=== PATIENT | female | born 1945 | race Caucasian/White ===

== ENCOUNTER 2020-12-30 22:41 | Emergency (ER) | payer MEDICARE, BC ==
--- NOTE | 2020-12-31 00:08 | EDM.PDOC ---
ED HPI GENERAL MEDICAL PROBLEM - General Chief Complaint: General Stated Complaint: MEDICAL [facility] Time Seen by Provider: 12/30/20 23:56 Source of Information: Reports: Patient, Family, RN Notes Reviewed History Limitations: Reports: No Limitations - History of Present Illness INITIAL COMMENTS - FREE TEXT/NARRATIVE: 75-year-old female presents emergency department today via EMS services following a fall at home, this was unwitnessed fall there was no loss of consciousness however she did injure herself they believe she fell in her home and hit a bookcase causing severe injury to her left side of her face lacerations and a severe black eye. She does have a history of dementia difficult to obtain review of systems from her. She denies any pain at this time - Related Data Allergies Allergy/AdvReac Type Severity Reaction Status Date / Time adhesive Allergy Rash Verified 12/30/20 23:12 propoxyphene Allergy Hives Verified 12/30/20 23:12 Sulfa (Sulfonamide Allergy Hives Verified 12/30/20 23:12 Antibiotics) amoxicillin [Amoxicillin] AdvReac Diarrhea Verified 12/30/20 23:12 Home Meds: Home Meds Carbidopa/Levodopa [Sinemet Cr 25-100 mg] 2 tab PO BEDTIME 12/07/12 [History] Simvastatin [Zocor] 40 mg PO DAILY 12/07/12 [History] Tolterodine Tartrate [Detrol LA] 4 mg PO DAILY 12/07/12 [History] predniSONE [Prednisone] 5 mg PO DAILY 12/07/12 [History] Biotin/Calcium Carbonate [Biotin 800 MCG] 5,000 mg PO DAILY 07/03/13 [History] Latanoprost [Xalatan] 1 drop OP DAILY 07/03/13 [History] Levothyroxine [Synthroid] 75 mcg PO ACBREAKFAST 07/16/15 [History] Multivit-Min/Iron/Folic/Lutein [Centrum Silver Women Tablet] 1 each PO DAILY 08/31/17 [History] timoloL maleate [Timoptic 0.5% Opth Soln] 1 drop EYEBOTH DAILY 08/31/17 [History] Cholecalciferol (Vitamin D3) [Vitamin D3] 2,000 units PO DAILY 12/31/20 [History] Cyclobenzaprine [Flexeril] 5 mg PO ASDIRECTED 12/31/20 [History] Folic Acid 1.6 mg PO DAILY 12/31/20 [History] Gabapentin [Neurontin] 100 mg PO BID 12/31/20 [History] Hydrocodone/Acetaminophen [Hydrocodon-Acetaminophn 10-325] 1 tab PO ASDIRECTED 12/31/20 [History] Ipratropium [Atrovent 0.06% Nasal [place]] 1 dose ASIF ASDIRECTED 12/31/20 [History] Iron,Carbonyl/Ascorbic Acid [Iron-Vitamin C 100-250 mg Tab] 1 tab PO DAILY 12/31/20 [History] Methotrexate 2.5 mg PO DAILY 12/31/20 [History] Warfarin [Coumadin] 1 tab PO ASDIRECTED 12/31/20 [History] carvediloL [Carvedilol] 3.125 mg PO DAILY 12/31/20 [History] lisinopriL [Lisinopril] 5 mg PO DAILY 12/31/20 [History] Past Medical History HEENT History: Reports: Allergic Rhinitis, Cataract, Glaucoma, Sinusitis Cardiovascular History: Reports: High Cholesterol Gastrointestinal History: Reports: Diverticulosis, GERD, Hiatal Hernia [employer] History: Reports: Musculoskeletal History: Reports: Arthritis, Back Pain, Chronic, Neck Pain, Chronic Psychiatric History: Reports: Dementia Endocrine/Metabolic History: Reports: Hypothyroidism - Infectious Disease History Infectious Disease History: Reports: Chicken Pox, Measles, Mumps - Past Surgical History HEENT Surgical History: Reports: Cataract Surgery GI Surgical History: Reports: Cholecystectomy, Colon, Colonoscopy, EGD, Hernia, Abdominal Female Surgical History: Reports: Section, Hysterectomy Neurological Surgical History: Reports: C-Spine Musculoskeletal Surgical History: Reports: Shoulder Replacement Other Musculoskeletal Surgeries/Procedures:: feet and surg. bilat. for RA Social & Family History - Tobacco Use Tobacco Use Status *Q: Never Tobacco User - Caffeine Use Caffeine Use: Reports: None - Alcohol Use Days Per Week of Alcohol Use: 7 Number of Drinks Per Day: 2 Total Drinks Per Week: 14 - Recreational Drug Use Recreational Drug Use: No ED ROS GENERAL - Review of Systems Review Of Systems: See Below Constitutional: Reports: No Symptoms Respiratory: Reports: No Symptoms Cardiovascular: Reports: No Symptoms GI/Abdominal: Reports: No Symptoms Musculoskeletal: Reports: No Symptoms Skin: Reports: Wound Neurological: Reports: No Symptoms ED EXAM, GENERAL - Physical Exam Exam: See Below Free Text/Narrative:: Primary survey airway is open patent and clear to auscultation bilaterally cardiovascular etc. rate and rhythm S1-S2 GCS 15 Secondary survey General: Elderly female, not in any distress, alert and oriented x2, GCS 15 HEENT: head is marked bruising appreciated over the left orbit she does have lacerations along the cheek and upper lip normocephalic, eyes pupils equal round reactive to light, sclera clear no conjunctivitis appreciated extraocular eye movements intact. ears tympanic membranes clear and mar landmarks and light reflex are present bilaterally canals are clear. Nose no septal deviation, nares are clear, no blood present. Mouth mucosa is moist and pink no erythema or exudate noted in soft palate, tongue is midline uvula is midline, dentition is intact. Neck: Supple no thyromegaly no tracheal deviation. NO posterior midline C-spine tenderness Positive for evidence of intoxication GCS > 14 No focal neurological deficit NO distracting injury Nodes: Cervical nodes subclavicular nodes nontender no palpable lymphadenopathy noted. Lungs: clear to auscultation bilaterally with symmetrical respirations, no adventitious noise appreciated. CV: Regular rate and rhythm S1 and S2 appreciated no murmurs rubs or gallops noted. Abdomen: Soft, nontender, no palpable masses or organomegaly appreciated, no distention no guarding bowel sounds are present, [scars ]. Neuro: Cranial nerves II test with pupillary light reflex 4 mm to 2 mm bilaterally, CN III test pupillary constriction, lid elevation and eye abduction bilaterally, CN IV downward movement of eyes bilaterally, CN V good jaw movement, CN lateral deviation of the eyes bilaterally to finger movement, CN VII symmetrical smile shows teeth without difficulty, CN VIII pass finger rub to ears bilaterally, CN IX adequate voice and tone, CN X adequate voice and tone no difficulty swallowing, CN XI can shrug shoulders without difficulty, CN XII can stick tongue out without difficulty, cranial nerves II to XII intact as tested, Skin: Marked bruising is appreciated around the left orbit, lacerations along the left cheek laceration inside the mouth superior lip. Skin tear noticed on the left wrist area Extremities: No lower extremity edema appreciated, no tenderness shoulders elbows wrists bilaterally pelvic rocks is negative no tenderness knees or ankles bilaterally Exam Limited By: No Limitations General Appearance: Alert, WD/WN, No Apparent Distress ED GENERAL MEDICAL PROCEDURES - Laceration/Wound Repair Face Lac/wound length in cm: 1 Appearance: Linear Distal NVT: Neuro & Vascular Intact, No Tendon Injury Anesthetic Type: Local Local Anesthesia - Lidocaine (Xylocaine): 1% with EPI Local Anesthetic Volume: 1cc Skin Prep: Saline Saline irrigation (cc's): 20 Exploration/Debridement/Repair: Wound Explored, In a Bloodless Field, Explored to Base Closed with: Sutures Suture Size: 5-0 # of Sutures: 1 Suture Type: Running Sterile Dressing Applied: Nurse Tetanus Status Addressed: Yes Complications: No - Additional/Other Procedure(s) Other (Free Text) Procedure(s): preoperative diagnosis multiple lacerations to the face two are 1 cm in length 1 is 2 cm in length one 1 cm in length inside of the mouth Postoperative diagnosis same Surgeon Jimenez OfficerMD Verbal consent was obtained prior to procedure risks and benefits were discussed patient is in agreement and wishes to proceed. Anesthesia 3 cc lidocaine with epinephrine 1% Estimated blood loss minimal Specimens none Summary procedure: Timeout was performed prior to initiation procedure identified correct site, correct patient and correct procedure. After adequate anesthesia the area was cleaned with tap water copious amounts approximately 60 cc, next 5-0 Ethilon was used to repair the multiple lacerations, the first 1 cm laceration was pared with a running suture, next the 2 cm laceration was repaired with 3 interrupted sutures, next a 1 cm laceration was repaired with 2 interrupted sutures, next the 1 cm laceration inside the mouth was repaired with 4-0 Vicryl 2 interrupted sutures. Tetanus was updated today Complications none apparent Course - Vital Signs Last Recorded V/S: Last Vital Signs Temp 98.0 F 12/30/20 22:49 Pulse 93 12/30/20 23:14 Resp 14 12/30/20 22:49 BP 121/71 12/30/20 23:14 Pulse Ox 96 12/30/20 23:14 - Orders/Labs/Meds Orders: Active Orders 24 hr Category Date Time Status Vaccine to be Administered/Admin Charge [RC] ASDIRECTED Care 12/31/20 01:47 Active Meds: Medications Discontinued Medications Generic Name Dose Route Start Last Admin Trade Name Freq PRN Reason Stop Dose Admin Bacitracin 2 dose 12/31/20 00:03 Bacitracin Oint 1 Gm U/D Packet TOP 12/31/20 00:04 ONETIME ONE Diphtheria/Tetanus/Acell Pertussis 0.5 ml 12/31/20 01:47 Diphtheria,Pertussis(Acell),Tetanus Vaccine 0.5 Ml Syringe IM 12/31/20 01:48 .ONCE ONE Lidocaine/Epinephrine 20 ml 12/31/20 00:03 Lidocaine 1% With Epinephrine 1:100,000 50 Ml Mdv SUBCUT 12/31/20 00:04 NOW STA Departure - Departure Time of Disposition: 02:24 Disposition: Home, Self-Care 01 Condition: Fair Clinical Impression: Maxillary fracture Qualifiers: Encounter type: initial encounter Fracture type: closed Laterality: left Qualified Code(s): S02.40DA - Maxillary fracture, left side, initial encounter for closed fracture Facial laceration Qualifiers: Encounter type: initial encounter Qualified Code(s): S01.81XA - Laceration without foreign body of other part of head, initial encounter - Discharge Information Instructions: Orbital Floor Fracture, Laceration Care, Adult Referrals: PCP,Unknown [Primary Care Provider] - Forms: ED Department Discharge Additional Instructions: Please call to the [facility] in the morning for an appointment time for ear nose and throat, take full course of antibiotics, suture removal in 3 days, follow with with primary care or return to the emergency department. Recommend no blowing the nose for the next week or so. Call or return to the emergency department worsening of symptoms Sepsis Event Note (ED) - Evaluation Sepsis Screening Result: No Definite Risk - Focused Exam Vital Signs: Vital Signs Temp Pulse Resp BP Pulse Ox 12/30/20 23:14 93 121/71 96 12/30/20 22:49 98.0 F 97 14 119/79 98 12/30/20 22:42 98.0 F 97 14 119/79 98 - My Orders Last 24 Hours: My Active Orders 12/31/20 01:47 Vaccine to be Administered/Admin Charge [RC] ASDIRECTED - Assessment/Plan Last 24 Hours: My Active Orders 12/31/20 01:47 Vaccine to be Administered/Admin Charge [RC] ASDIRECTED Plan: Assessment Acuity = acute Site and laterality = minimally displaced left side maxilla fracture, multiple facial lacerations Etiology = trauma Manifestations = none Location of injury = Home Lab values = CT scan describes fracture as above Plan She is set up for follow-up with ear nose and throat, placed on antibiotics of amoxicillin, no blowing the nose until reevaluated by ENT, hydrocodone 5/325 1 tab p.o. 3 times daily as needed provided for pain control This note was dictated using [employer] voice recognition software please call with any questions on syntax or grammar.
[2020-12-31] MEDS: Lidocaine 1% with EPINEPHrine 1:100,000 50 ML MDV SUBCUT STA (01:30)
[2020-12-31] MEDS: Bacitracin Oint 1 GM U/D Packet TOP ONE (01:30)
--- NOTE | 2020-12-31 01:41 | CRLCT ---
For Patients: As a result of the Century Cures Act, medical imaging exams and procedure reports are released immediately into your electronic medical record. You may view this report before your referring provider. If you have questions, please contact your health care provider. INDICATION: Pain after fall, striking the head face. COMPARISON: CT of the head from 02/20/2008 TECHNIQUE: CT examination of the head was performed with 2 mm thick axial, sagittal, and coronal sections without intravenous contrast. Images were obtained from the vertex of the skull through the skull base, and I examined the images with the brain and bone windows. Please note that all CT scans at this facility use dose modulation, iterative reconstruction, and/or weight-based dosing when appropriate to reduce radiation dose to as low as reasonably achievable. FINDINGS: There has been prominent progression of cerebral atrophy, now with prominent dilatation of the ventricles sulci there is progression of small vessel ischemic changes well, now with moderate hypodensity in the periventricular and subcortical white matter. 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 This appears to be present in retrospect on the previous exam, but is much less evident. The brain is otherwise normal in appearance for the patient`s age on today`s study, with no sign of mass lesion, mass effect, hemorrhage, or edema. The visualized portions of the orbits are normal in appearance status post cataract surgery. The visualized paranasal sinuses and mastoids are clear. The osseous structures are normal in their appearance with no sign of abnormality in the skull base or calvarium. IMPRESSION: No sign of closed head injury. Prominent progression of diffuse cerebral atrophy, now prominent. Progression of small vessel ischemic changes, now moderate. 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 Please note that all CT scans at this facility use dose modulation, iterative reconstruction, and/or weight-based dosing when appropriate to reduce radiation dose to as low as reasonably achievable. Dictated by Hollis Jerry MD @ 12/31/2020 1:40:09 AM (Electronically Signed)
--- NOTE | 2020-12-31 01:47 | CRLCT ---
For Patients: As a result of the Century Cures Act, medical imaging exams and procedure reports are released immediately into your electronic medical record. You may view this report before your referring provider. If you have questions, please contact your health care provider. INDICATION: Pain after fall, striking the face and the head. COMPARISON: CT of the head from 02/20/2008. TECHNIQUE: CT examination of the facial bones is performed without contrast enhancement using spiral technique. 2 mm thick axial, coronal and sagittal sections were obtained from the data. Please note that all CT scans at this facility use dose modulation, iterative reconstruction, and/or weight-based dosing when appropriate to reduce radiation dose to as low as reasonably achievable. FINDINGS: There is mild swelling of the left maxillary and mandibular region, with no sign of any focal hematoma, soft tissue gas, or foreign body. The swelling extends into the left lower eyelid. There is an acute, minimally displaced fracture of the anterior wall of the left maxillary sinus. This is associated with a small air-fluid level in the maxillary sinus which is probably hemorrhage. There is also a small amount of fluid in the left sphenoid sinus, probably passage of hemorrhage into the sphenoid sinus from the maxillary sinus. There is no sign of extension of the anterior maxillary wall fracture to the left inferior orbital rim and thus no sign of any associated fracture of the floor of the left orbit. There is an acute, nondisplaced fracture of the maxillary spine at the base of the nose, with no sign of any additional nasal fracture. There is no sign of additional facial fracture on today`s study. The orbits, zygomatic arches, right maxilla, and mandible are normal in appearance. The rest of the paranasal sinuses are clear. The mastoids are clear. The intraorbital soft tissue structures are unremarkable. The airway structures are normal in appearance. IMPRESSION: Acute, minimally depressed fracture of the anterior wall of the left maxilla, without any associated fracture of the left inferior orbital rim or orbital floor. Nondisplaced, acute fracture of the maxillary spine. No additional nasal fracture seen. Blood in the left maxillary sinus related to the anterior wall fracture. Mild amount of fluid in the left sphenoid sinus is probably from the left maxillary sinus. Please note that all CT scans at this facility use dose modulation, iterative reconstruction, and/or weight-based dosing when appropriate to reduce radiation dose to as low as reasonably achievable. Dictated by Hollis Jerry MD @ 12/31/2020 1:46:15 AM (Electronically Signed)
--- NOTE | 2020-12-31 01:53 | CRLCT ---
For Patients: As a result of the Century Cures Act, medical imaging exams and procedure reports are released immediately into your electronic medical record. You may view this report before your referring provider. If you have questions, please contact your health care provider. INDICATION: Pain after fall. COMPARISON: None available TECHNIQUE: CT examination of the cervical spine is performed without contrast using spiral technique. 2 mm thick axial, sagittal and coronal reconstructions were made. Please note that all CT scans at this facility use dose modulation, iterative reconstruction, and/or weight-based dosing when appropriate to reduce radiation dose to as low as reasonably achievable. FINDINGS: : There are changes of extensive fusion from C4 through C7. Corpectomy has been performed at C5 with a metallic strut replacing the central C5 vertebral body. An anterior metallic plate extends from C4 through C7 with anterior anchoring screws. There is no sign of fracture or loosening of any of the hardware. The fused segments are in anatomic alignment with solid osseous fusion. The C7-T1 disc space is not fully included on today`s study, but there does appear to be grade 1 anterior subluxation of C7 on T1. There is grade 1 anterior subluxation of C2 on C3 and of C3 on C4. There is mild C3-4 disc degenerative disease. There is mild diffuse C3-4 disc bulging with posterior annular ossification, probably not prominent enough to resultant spinal stenosis. There is moderate bilateral facet arthropathy at these levels. There is no sign of fracture of the cervical vertebral bodies or posterior elements. There is no sign of prevertebral soft tissue swelling. The airway structures are normal in appearance. The visualized skull base is normal in appearance. The visualized inferior brain is normal in appearance for the patient`s age. The apices of the lungs are not included on today study. IMPRESSION: No sign of acute osseous injury to the cervical spine. Solid osseous fusion from C4 through C7 in anatomic alignment with changes of C5 corpectomy. Grade 1 anterior subluxation of C2 on C3, C3 on C4, and probably of C7 on T1. The superior cervical spine subluxations are almost certainly degenerative. Please note that all CT scans at this facility use dose modulation, iterative reconstruction, and/or weight-based dosing when appropriate to reduce radiation dose to as low as reasonably achievable. Dictated by Hollis Jerry MD @ 12/31/2020 1:51:08 AM (Electronically Signed)
[2020-12-31 02:24] VITALS: BP 110/69; PULSE 77
[2020-12-31] MEDS: Diphtheria,Pertussis(Acell),Tetanus Vaccine 0.5 ML Syringe IM ONE (02:46)
== END 2020-12-31 02:57 | disposition home or self-care (01) ==
LOC: JP.ED 22:41
DX: S02.40DA Maxillary fracture, left side, initial encounter for closed fracture (principal); S01.511A Laceration without foreign body of lip, initial encounter; S01.412A Laceration without foreign body of left cheek and temporomandibular area, initial encounter; S61.512A Laceration without foreign body of left wrist, initial encounter; E78.00 Pure hypercholesterolemia, unspecified; F03.90 Unspecified dementia, unspecified severity, without behavioral disturbance, psychotic disturbance, mood disturbance, and anxiety; E03.9 Hypothyroidism, unspecified; Z23 Encounter for immunization; Z91.048 Other nonmedicinal substance allergy status; Z88.8 Allergy status to other drugs, medicaments and biological substances; Z88.2 Allergy status to sulfonamides; Z88.0 Allergy status to penicillin; Z79.899 Other long term (current) drug therapy; W19.XXXA Unspecified fall, initial encounter; Y92.009 Unspecified place in unspecified non-institutional (private) residence as the place of occurrence of the external cause
CPT/HCPCS: 12013; 70450; 70486; 72125; 90471; 90715; 99284-25